=== PATIENT | female | born 1975 | race Two or more races ===

== ENCOUNTER 2019-01-08 13:01 | Outpatient (CLI) | payer OTHER ==
[~2019-01-08 13:01] MED LIST: VOLTAREN100 GM TP
== END 2019-01-08 13:11 | disposition home or self-care (01) ==
LOC: SONOGRAMA 13:01
DX: E04.2 Nontoxic multinodular goiter (principal)

== ENCOUNTER 2019-01-19 12:19 | Emergency (ER) | payer OTHER ==
[~2019-01-19] VITALS: Ht 162.6 cm; Wt 59.0 kg
[2019-01-19] MEDS ORDERED: CLONAZEPAM0.5 M1 (12:34)
== END 2019-01-19 16:39 | disposition home or self-care (01) ==
LOC: ER 12:19
DX: E86.0 Dehydration (principal)